=== PATIENT | female | born 1985 | race Caucasian/White ===

== ENCOUNTER 2018-10-09 03:32 | Emergency (ER) | payer SELFPAY ==
[~2018-10-09] VITALS: Ht 157.5 cm; Wt 56.7 kg
[2018-10-09 03:41] VITALS: BP_SYST 136
[2018-10-09] MEDS ORDERED: PROMETHAZINE 6.25 MG/ CODEINE 10 MG/ 5 ML PO ONE (04:15)
[2018-10-09] MEDS ORDERED: LevALBUTEROL HCL 1.25 MG/0.5 ML *CONC.* VIAL.NEB (XOPENEX CONC.) INH ONE (04:15)
[2018-10-09] MEDS ORDERED: NS 1000 ML IV.SOLN IV ONE (04:15)
[2018-10-09 04:43] LABS: BILIRUBIN,URINE NEGATIVE (NEGATIVE); BLOOD, URINE NEGATIVE (NEGATIVE); CLARITY/URINE SLIGHTLY HAZY (CLEAR); COLOR,URINE YELLOW (YELLOW); GLUCOSE,URINE NEGATIVE (NEGATIVE); KETONES,URINE NEGATIVE (NEGATIVE); LEUKOCYTE ESTERASE ,URINE TRACE (NEGATIVE); NITRITE, URINE POSITIVE (NEGATIVE); PROTEIN URINE NEGATIVE (NEGATIVE); UROBILINOGEN,URINE 0.2 (0.2-1.0)
[2018-10-09 04:49] LABS: BACTERIA,URINE MANY /HPF (None Seen); CALCIUM OXALATE CRYSTALS,UR 0-10 /HPF (None Seen); MUCUS,URINE 1+ /LPF (None Seen); RBC,URINE 0-3 /HPF (0-3)
[2018-10-09 04:53] LABS: HEMATOCRIT 42.4 % (36-48); HEMOGLOBIN 14.2 g/dL (12.0-16.0); MEAN CORPUSCULAR HEMOGLOBIN 28 pg (27-31); MEAN CORPUSCULAR HGB CONC 33 % (32-36); MEAN CORPUSCULAR VOLUME 85 fL (79.0-98.0); NEUTROPHILS % (AUTO) 63.2 % (40.0-70.0); PLATELET COUNT (AUTO) 327 K/uL (130-430); RED BLOOD CELL COUNT(AUTO) 5.01 MIL/uL (4.2-6.2); RED CELL DISTRIBUTION WIDTH 13.2 % (9.0-15.0); WHITE BLOOD COUNT (AUTO) 11.7 K/uL (4.8-10.8)
[2018-10-09 04:54] LABS: BASOPHILS # (AUTO) 0.2 K/uL (0.0-0.2); EOSINOPHILS # (AUTO) 0.4 K/uL (0.0-0.4); EOSINOPHILS % (AUTO) 3.4 % (0.0-4.0); LYMPHOCYTES # (AUTO) 3.1 K/uL (1.0-5.5); LYMPHOCYTES % (AUTO) 26.3 % (20.5-51.5); MONOCYTES # (AUTO) 0.6 K/uL (0.0-1.0); MONOCYTES % (AUTO) 5.1 % (1.7-9.3); NEUTROPHILS # (AUTO) 7.4 K/uL (1.8-7.7)
[2018-10-09 05:20] LABS: POTASSIUM 3.9 mmol/L (3.5-5.1)
[2018-10-09 05:21] LABS: CREATININE 0.94 mg/dL (0.55-1.30)
[2018-10-09 05:23] LABS: TOTAL BILIRUBIN 0.5 mg/dL (0.0-1.0)
[2018-10-09 05:25] LABS: ALBUMIN 3.4 g/dL (3.4-4.8)
[2018-10-09 06:05] VITALS: BP_SYST 119
== END 2018-10-09 06:05 | disposition home or self-care (01) ==
LOC: SED 03:32
DX: J11.1 Influenza due to unidentified influenza virus with other respiratory manifestations (principal); R05 Cough; R50.9 Fever, unspecified
CPT/HCPCS: 36415; 71045; 80053; 81000; 81025; 83605; 85025; 86710; 87040; 87086; 94640; 99284; J7030; J7612